=== PATIENT | female | born 1995 | race Caucasian/White ===

== ENCOUNTER 2017-04-05 08:46 | Emergency (ER) | payer OTHER ==
[~2017-04-05] VITALS: Ht 162.6 cm; Wt 73.6 kg
[2017-04-05 11:08] VITALS: BP 110/68
== END 2017-04-05 11:08 | disposition home or self-care (01) ==
LOC: ED 08:46
DX: S39.012A Strain of muscle, fascia and tendon of lower back, initial encounter (principal); L84 Corns and callosities; X58.XXXA Exposure to other specified factors, initial encounter; Y92.89 Other specified places as the place of occurrence of the external cause; Y93.89 Activity, other specified; Y99.8 Other external cause status

== ENCOUNTER 2017-12-04 07:30 | Emergency (ER) | payer OTHER ==
[~2017-12-04] VITALS: Ht 162.6 cm; Wt 68.9 kg
[2017-12-04 07:34] VITALS: Ht 162.6 cm; Wt 68.9 kg
[2017-12-04 09:39] LABS: microscopic required? YES; urine erythrocyte 2+ (NEGATIVE)
[2017-12-04 10:33] VITALS: BP 110/74
== END 2017-12-04 10:33 | disposition home or self-care (01) ==
LOC: ED 07:30
PROVIDERS: Emergency Medicine
DX: S39.012A Strain of muscle, fascia and tendon of lower back, initial encounter (principal); R82.71 Bacteriuria; X58.XXXA Exposure to other specified factors, initial encounter; Y93.89 Activity, other specified; Y92.89 Other specified places as the place of occurrence of the external cause; Y99.8 Other external cause status
CPT/HCPCS: J1100; J1885